=== PATIENT | male | born 1990 | race Caucasian/White ===

== ENCOUNTER 2017-03-19 15:22 | Emergency (ER) | payer SELFPAY ==
[~2017-03-19] VITALS: Ht 170.2 cm; Wt 98.4 kg
[~2017-03-19 15:22] MED LIST: COUMADIN5 MG PO; Coumadin,Jantoven PO; LOVENOX100 MG/1 M SC; Lovenox SC; NORCO 5/3251 TABLET PO
[2017-03-19 18:03] LABS: HEMATOCRIT 43.3 % (38.0-50.0); MCH 30.6 PG (29.0-34.0); MCHC 33.7 G/DL (30.0-36.0); MCV 90.8 FL (86-99); MEAN PLAT.VOLUME 9.8 uM^3 (9.0-12.4); PLATELET COUNT 203 K/uL (156-360); RBC DIS.WIDTH-CV 13.2 % (11.8-14.6); RED BLOOD COUNT 4.77 M/uL (4.00-5.50); WHITE BLOOD COUNT 7.1 K/uL (4.1-10.2)
[2017-03-19 18:17] LABS: CHLORIDE 107 mEq/L (99-109); POTASSIUM 3.9 mEq/L (3.7-5.4); SODIUM 142 mEq/L (136-147)
[2017-03-19 18:19] LABS: GLUCOSE 89 mg/dL (70-99)
[2017-03-19 18:20] LABS: ANION GAP 10 MEQ/L (2-14)
[2017-03-19 18:22] LABS: GFR ESTIMATE (CALCULATED) > 59 mL/min/
[2017-03-19 18:23] LABS: UREA NITROGEN (BUN) 7 mg/dL (9-23)
[2017-03-19 18:27] LABS: PROTHROMBIN TIME 10.3 (9.2-11.2); PTT 26.7 (25-32)
[2017-03-19] MEDS ORDERED: XARELTO1 EACH PO (19:25)
[2017-03-19 19:55] VITALS: BP 122/72
== END 2017-03-19 19:56 | disposition home or self-care (01) ==
LOC: EME 15:22
PROVIDERS: Emergency Medicine
DX: I82.441 Acute embolism and thrombosis of right tibial vein (principal); I82.491 Acute embolism and thrombosis of other specified deep vein of right lower extremity; I82.811 Embolism and thrombosis of superficial veins of right lower extremity; I82.531 Chronic embolism and thrombosis of right popliteal vein; Z91.14 Patient's other noncompliance with medication regimen; Z86.718 Personal history of other venous thrombosis and embolism; Z86.711 Personal history of pulmonary embolism; Z72.0 Tobacco use
CPT/HCPCS: 80048; 85027; 85610; 85730; 93971; 99281; 99284; J1650